=== PATIENT | male | born 2000 | race Caucasian/White ===

== ENCOUNTER 2022-08-19 11:19 | Day surgery (SDC) | payer BC ==
[2022-08-18 11:59] VITALS: BMI 28.5
[~2022-08-19 11:19] MED LIST: Bupivacaine PF 0.5% 30 ML VIAL ONE; EPINEPHrine 1 MG/ML AMP ONE; Neomycin-Polymyxin 1 ML AMP ONE
[2022-08-19] MEDS ORDERED: Midazolam HCl 2 mg/2 ml Vial ONE (12:34)
[2022-08-19] MEDS ORDERED: Ropivacaine 0.5% HCl/PF (150 MG/30 ML VIAL) ONE (12:34)
[2022-08-19] MEDS ORDERED: Ropivacaine 0.2% HCl/PF 20 ML ONE (12:34)
[2022-08-19] MEDS ORDERED: Fentanyl 100 MCG/2 ML VIAL ONE ×2 (12:35→13:03)
[2022-08-19] MEDS ORDERED: Lidocaine 1% PF 5 ML VIAL ONE ×2 (12:35→13:04)
[2022-08-19] MEDS ORDERED: EPINEPHrine 1 MG/ML AMP ONE (12:35)
[2022-08-19] MEDS ORDERED: Dexamethasone 4 mg/ml Vial ONE (12:35)
[2022-08-19] MEDS ORDERED: CEFAZOLIN 2 GM VIAL ONE (12:48)
[2022-08-19] MEDS ORDERED: PROPOFOL 20 ML ONE ×2 (13:03→13:20)
[2022-08-19] MEDS ORDERED: Dexamethasone 20 MG/5 ML VIAL ONE (13:20)
[2022-08-19] MEDS ORDERED: Ondansetron PF 4 MG/2 ML Vial ONE (14:44)
== END 2022-08-19 16:20 | disposition home or self-care (01) ==
LOC: CSHSDC 11:19
PROVIDERS: ATTEND Orthopaedic Surgery
PROC: 0PSK04Z Reposition Right Ulna with Internal Fixation Device, Open Approach (ICD-10-PCS; principal; 2022-08-19)
DX: S52.021A Displaced fracture of olecranon process without intraarticular extension of right ulna, initial encounter for closed fracture (principal); X58.XXXA Exposure to other specified factors, initial encounter
CPT/HCPCS: C1713; J0171; J1100; J2250; J2405; J2704; J2795; J3010; S0020